=== PATIENT | male | born 1965 | race Caucasian/White ===

== ENCOUNTER 2018-08-06 03:51 | Observation (INO) ==
--- NOTE | 2018-08-06 04:26 | PROVIDER DOCUMENTATION ---
HPI-Psychological Disorder - General Chief Complaint: Overdose Stated Complaint: POSS. OD/PSYCH Time Seen by Provider: 08/06/18 04:02 Source: patient Allergies/Adverse Reactions: Patient Allergies Allergy/AdvReac Type Severity Reaction Status Date / Time codeine Allergy Unknown Verified 08/06/18 03:59 naproxen Allergy FLUSHING Verified 08/06/18 03:59 Home Medications: Home Medication List Medication Instructions Recorded Confirmed Last Taken Type Escitalopram Oxalate [Lexapro] 20 mg PO DAILY 10/06/16 04/30/18 01/07/17 09:00 History Gabapentin [Neurontin] 400 mg PO TID 01/06/17 04/30/18 01/07/17 14:00 History Tizanidine [Zanaflex] 4 mg PO Q8HR 01/06/17 04/30/18 01/07/17 14:00 History Tramadol [Ultram] 100 mg PO 4XDAY PRN 01/06/17 04/30/18 01/07/17 14:00 History Lorazepam [Ativan] 1 mg PO BID 01/07/17 04/30/18 01/06/17 21:00 History Aspirin 81 mg PO DAILY 01/20/18 04/30/18 Unknown History Montelukast Sodium [Singulair] 10 mg PO DAILY 01/20/18 04/30/18 Unknown History Omeprazole [Prilosec] 40 mg PO DAILY 01/20/18 04/30/18 Unknown History Trazodone [Desyrel] 200 mg PO QHS 01/20/18 04/30/18 01/19/18 21:00 History Budesonide/Formoterol Inhaler 2 puff INH RTBID inhaler 01/22/18 04/30/18 Unknown Rx [Symbicort 80/4.5 Microgm Inhaler] Ketorolac [Toradol] 10 mg PO Q6H PRN PRN #20 tab 04/18/18 04/30/18 Unknown Rx Orphenadrine [Norflex] 100 mg PO BID PRN #20 tab 04/18/18 04/30/18 Unknown Rx Ketorolac [Toradol] 10 mg PO Q6H PRN PRN #20 tab 05/30/18 Unknown Rx - History of Present Illness-Psych Nature of Presenting Problem: Patient is a 52 year old white male with history of chronic pain and severe depression who presents with GCS of 15 by private auto reporting overdose of 800mg gabapentin X 10-15 at 9pm tonight. Review of Systems - Adult - REVIEW OF SYSTEMS - ADULT Constitutional: denies: chills, fever Eyes: denies: blurred vision, double vision Ears, Nose, Mouth & Throat: denies: throat pain Cardiovascular: denies: chest pain Respiratory: denies: shortness of breath Gastrointestinal: denies: abdominal pain, diarrhea, nausea, vomiting Genitourinary: reports: no symptoms reported Musculoskeletal: reports: no symptoms reported Integumentary: denies: rash Neurological: reports: see HPI. denies: numbness, paresthesia, seizure Psychiatric: reports: depression, suicidal thoughts Endocrine: reports: no symptoms reported Hematologic/Lymphatic: reports: no symptoms reported Allergic/Immunologic: reports: no symptoms reported All Other Systems: Reviewed and Negative Past History - Adult - PAST MEDICAL HISTORY-ADULT Review of Records: reports: Old Records Reviewed, Nursing Assessment Review, Medications Reviewed, Social history reviewed & non-contributory. Major Childhood Illnesses: reports: denies history Cardiovascular: reports: HTN, hyperlipidemia Respiratory: reports: denies history Gastrointestinal: reports: denies history Obstetrical/Gynecological: reports: denies history Genitourinary: reports: denies history Musculoskeletal: reports: chronic pain (back), intervertebral disc disease Neurological: reports: denies history Endocrine/Immune: reports: denies history Other Conditions: reports: denies history - PRIOR SURGERIES/PROCEDURES Surgical/Procedure History: reports: none - PRIOR HOSPITALIZATIONS Prior Hospitalizations: reports: none - IMMUNIZATION STATUS Childhood Immunizations: See Nurse Assessment Flu Vaccine: See Nurse Assessment - FAMILY HISTORY Family History: reviewed, not pertinent - SOCIAL HISTORY Smoking: greater than 1 pack/day Substance Use: denies Alcohol Use Frequency: occasionally Living Situation: family Physical Exam-Psych Focus - Physical Exam-Psych Initial Vital Signs Reviewed: Yes Appearance: disheveled, other (anxious) Neurological: alert Behavior/Eye Contact/Speech: other (depressed) HENMT: normocephalic/atraumatic, moist mucous membranes Neck: non-tender, full range of motion, supple Respiratory: lungs clear, normal breath sounds, no pleuratic chest pain, no respiratory distress Cardiovascular: normal peripheral pulses, regular rate, rhythm Abdominal Exam: normal bowel sounds, non tender, soft, no organomegaly Lymphatic: no adenopathy Back Exam: normal inspection, no CVA tenderness Extremity: normal range of motion, non-tender Integumentary: normal color, normal turgor Progress - PLAN OF CARE/RESULTS Progress/Plan/Lab Results: Vital Signs - 8 hr 08/06/18 03:55 08/06/18 05:41 Temperature 97.6 F 97.8 F Pulse Rate 87 81 Respiratory Rate 18 16 Blood Pressure 205/126 150/80 O2 Sat by Pulse Oximetry 97 93 L Laboratory Results - last 24 hr 08/06/18 08/06/18 08/06/18 04:15 04:15 04:22 WBC 10.07 RBC 4.81 Hgb 14.9 Hct 43.2 MCV 89.8 MCH 31.0 MCHC 34.5 RDW Std Deviation 13.8 Plt Count 278 MPV 8.8 Immature Gran % (Auto) 0.8 H Neut % (Auto) 54.0 Lymph % (Auto) 31.5 [place] % (Auto) 9.7 H Eos % (Auto) 3.4 Baso % (Auto) 0.6 Immature Gran # (Auto) 0.08 H Neut # (Auto) 5.44 Lymph # (Auto) 3.17 [place] # (Auto) 0.98 H Eos # (Auto) 0.34 Baso # (Auto) 0.06 Sodium Potassium Chloride Carbon Dioxide Anion Gap BUN Creatinine Estimated GFR/1.73 m2 BUN/Creatinine Ratio Glucose Calculated Osmolality Calcium Total Bilirubin AST ALT Alkaline Phosphatase Total Protein Albumin Globulin Albumin/Globulin Ratio Salicylates Urine Opiates Screen NONE DETECTED Ur Oxycodone Screen NONE DETECTED Urine Methadone Screen NONE DETECTED U Propoxyphene Qual NONE DETECTED Acetaminophen Ur Barbituates Screen NONE DETECTED Ur Tricyclics Screen NONE DETECTED Ur Phencyclidine Scrn NONE DETECTED Ur Amphetamines Screen NONE DETECTED U Methamphetamines Scrn NONE DETECTED U Benzodiazepines Scrn PRESUMPTIVE POSITIVE A Urine Cocaine Screen NONE DETECTED U Cannabinoids Screen NONE DETECTED Plasma/Serum Ethyl Alc 08/06/18 04:55 WBC RBC Hgb Hct MCV MCH MCHC RDW Std Deviation Plt Count MPV Immature Gran % (Auto) Neut % (Auto) Lymph % (Auto) [place] % (Auto) Eos % (Auto) Baso % (Auto) Immature Gran # (Auto) Neut # (Auto) Lymph # (Auto) [place] # (Auto) Eos # (Auto) Baso # (Auto) Sodium 139 Potassium 3.5 Chloride 102 Carbon Dioxide 27 Anion Gap 10 BUN 12 Creatinine 1.0 Estimated GFR/1.73 m2 > 60 BUN/Creatinine Ratio 12 Glucose 108 H Calculated Osmolality 278 Calcium 9.3 Total Bilirubin 0.20 AST 65 H ALT 70 H Alkaline Phosphatase 90 Total Protein 7.6 Albumin 4.2 Globulin 3.0 Albumin/Globulin Ratio 1.0 Salicylates < 3.00 L Urine Opiates Screen Ur Oxycodone Screen Urine Methadone Screen U Propoxyphene Qual Acetaminophen < 1.2 L Ur Barbituates Screen Ur Tricyclics Screen Ur Phencyclidine Scrn Ur Amphetamines Screen U Methamphetamines Scrn U Benzodiazepines Scrn Urine Cocaine Screen U Cannabinoids Screen Plasma/Serum Ethyl Alc Orders Category Date Time Status Misc. NRSG Communication Order DIRECTED Care 08/06/18 04:05 Active Z-Document. for Tele Applied ORDERED Care 08/06/18 04:05 Completed ACETAMINOPHEN [TDM] Stat Lab 08/06/18 04:55 Completed ALCOHOL BLOOD Stat Lab 08/06/18 04:15 Completed CBC WITH ELECTRONIC DIFF [HEME] Stat Lab 08/06/18 04:15 Completed COMPREHENSIVE METABOLIC PANEL [CHEM] Stat Lab 08/06/18 04:55 Completed SALICYLATES [TDM] Stat Lab 08/06/18 04:55 Com[address] DRUG SCREEN [address] Stat Lab 08/06/18 04:22 Completed Telemetry [OM.EQ] Routine Oth 08/06/18 04:04 Active EKG [EKG] Stat Ther 08/06/18 04:[address] BRAVO FOR ADMISSION AT 0540 Result Diagrams: 08/06/18 04:15 08/06/18 04:55 - CONSULTS/PCP/HOSPITALIST Notification #1 *Consult/PCP/Hospitalist*: DR. BRAVO, HOSPITALIST Time Discussed: 05:40 Consult Disposition: Admit Departure - Departure Date of Disposition Decision: 08/06/18 Time of Disposition Decision: 05:45 DIAGNOSIS: Severe depression, Suicide attempt Drug overdose Qualifiers: Encounter type: initial encounter Injury intent: intentional self-harm Qualified Code(s): T50.902A - Poisoning by unspecified drugs, medicaments and biological substances, intentional self-harm, initial encounter Disposition: ADMITTED INPATIENT 09 Certified Medical Emergency: Emergent Condition: Stable Referrals and Follow-Ups: None,PCP [Primary Care Provider] - - Critical Care Note This patient required my direct & personal management of CC.: No Attestation - Physician/ SINGH Attestation Patient care was provided by Advanced Practice Provider:: No The physician spent face to face time with patient:: Yes Advanced Practice Provider documentation review:: Supervising physician onsite and consulted in the evaluation and care of this patient. The physician did have a face to face encounter with the patient.
[2018-08-06 04:33] LABS: BASO# 0.06 X1000 (0.0-0.2); BASO% 0.6 % (0.0-0.8); EOS# 0.34 X1000 (0.0-0.7); EOS% 3.4 % (0.0-10.0); HEMATOCRIT 43.2 % (42.0-52.0); HEMOGLOBIN 14.9 g/dL (14.0-18.0); IMM GRAN# 0.08 X1000 (0.0-0.04); IMM GRAN% 0.8 % (0.0-0.5); LYMPH# 3.17 X1000 (1.2-3.4); LYMPH% 31.5 % (20.5-51.1); MCHC 34.5 g/dL (33-37); MCV 89.8 FL (81-99); MONO# 0.98 X1000 (0.11-0.59); MONO% 9.7 % (1.7-9.3); MPV 8.8 FL (7.4-10.4); NEUT# 5.44 X1000 (1.4-6.5); PLT 278 X1000 (130-400); RBC 4.81 XMIL (4.7-6.1); RDW 13.8 % (11.5-14.5); WBC 10.07 X1000 (4.8-10.8)
[2018-08-06 05:00] LABS: UR AMPHETAMINES QUAL NONE DETECTED (NONE DETECT); UR BARBITUATES QUAL NONE DETECTED (NONE DETECT); UR BENZODIAZEPIN QUAL PRESUMPTIVE POSITIVE (NONE DETECT); UR CANNABINOIDS QUAL NONE DETECTED (NONE DETECT); UR COCAINE QUAL NONE DETECTED (NONE DETECT); UR METHADONE QUAL NONE DETECTED (NONE DETECT); UR METHAMPHETAMINE QUAL NONE DETECTED (NONE DETECT); UR OPIATES QUAL NONE DETECTED (NONE DETECT); UR OXYCODONE QUAL NONE DETECTED (NONE DETECT); UR PCP QUAL NONE DETECTED (NONE DETECT); UR PROPOXYPHENE QUAL NONE DETECTED (NONE DETECT); UR TCA QUAL NONE DETECTED (NONE DETECT)
[2018-08-06 05:17] LABS: ACETAMINOPHEN < 1.2 ug/mL (10-30); AGAP 10; ALBUMIN 4.2 g/dL (3.5-5.0); ALKALINE PHOSPHATASE 90 U/L (32-122); BUN 12 mg/dL (8-22); CALCIUM 9.3 mg/dL (8.8-10.2); CHLORIDE 102 mmol/L (98-107); COSMO 278; ESTIMATED GFR > 60; GLUCOSE 108 mg/dL (70-104); GOT 65 U/L (10-34); GPT 70 U/L (10-44); POTASSIUM 3.5 mmol/L (3.5-5.1); SALICYLATES < 3.00 mg/dL (3-10); SODIUM 139 mmol/L (136-145); TCO2 27 mmol/L (25-35); TOTAL PROTEIN 7.6 g/dL (6.3-8.3)
--- NOTE | 2018-08-06 05:58 | EKG Report ---
Test Performed on : 08/06/2018 04:11:52 AM Test Reason : pain Blood Pressure : / mmHG Vent. Rate : 081 BPM Atrial Rate : 081 BPM P-R Int : 158 ms QRS Dur : 086 ms QT Int : 364 ms P-R-T Axes : 051 069 060 degrees QTc Int : 422 ms Normal sinus rhythm. Normal ECG When compared with ECG of 20-JAN-2018 15:54, No significant change was found Unconfirmed Result
[2018-08-06 08:43] LABS: ACETAMINOPHEN < 1.2 ug/mL (10-30); SALICYLATES < 3.00 mg/dL (3-10)
[2018-08-06] MEDS ORDERED: NS 1,000 ML IV PRN (09:25)
[2018-08-06] MEDS ORDERED: ZOFRAN IV PRN (09:28)
[2018-08-06] MEDS ORDERED: TYLENOL PO PRN (09:28)
[2018-08-06] MEDS ORDERED: LEXAPRO PO SCH (09:30)
[2018-08-06] MEDS ORDERED: SINGULAIR PO SCH (09:30)
[2018-08-06] MEDS ORDERED: LOVENOX SUBQ SCH (09:30)
[2018-08-06] MEDS ORDERED: ASPIRIN PO SCH (09:30)
[2018-08-06] MEDS: SYMBICORT 80/4.5 MICROGM INHALER INH SCH ×2 (09:50→21:02)
[2018-08-06] MEDS: ATIVAN PO SCH ×2 (10:01→20:20)
[2018-08-06] MEDS ORDERED: PRINIVIL PO SCH (13:15)
[2018-08-06] MEDS: TORADOL PO PRN ×2 (13:39→20:20)
[2018-08-06 13:58] LABS: TSH 3.64 uIUmL (0.27-4.20)
--- NOTE | 2018-08-06 14:53 | HISTORY AND PHYSICAL ---
PRIMARY CARE PROVIDER: Nan MONTE. CHIEF COMPLAINT: Severe depression, wanting to . HISTORY OF PRESENT ILLNESS: 1. Mr. Nayan Khan is a 52-year-old male with a medical history of vasovagal syncope, hypertension, chronic cough, hypoglycemia, cervical spinal stenosis with bone spurs and bulging disk in the lumbar region. 2. Seasonal allergic rhinitis with possible asthma, also leading to the chronic cough. 3. Prostatism, is very weak urine stream he says. 4. Surgical bone spurs in the lumbar region, also seasonal allergic rhinitis with asthma, along with a chronic cough and the prostatism where he has a weak urinary stream. Also he has a very big history of depression. He states his depression and severe stress started when he was 16 years old. There was some sort of traumatic event for him, and he has had severe issues with anxiety and depression ever since. He is supposed to be on Lexapro; he stopped it around 3 months ago due to a running out and not having a follow-up physician appointment. Apparently last night around 7:30 or 8 according to him, he took a handful of Neurontin. He states that they were 800 mg Neurontins and it was at least 10 to 12 pills. He felt himself feeling weird to the point of having severe hallucinations. He woke his up, who then brought him to the hospital. He is transferred to the ICU for close observation. He still feels suicidal, but he wants to have help. He is requesting for help. He is very tearful. There was no other symptoms with the purposeful overdose. He is not lethargic. Blood pressure has been stable. There is just no obvious signs of overdose, like it just essentially messed him up with having hallucinations. We will get him a psych consult with Dada Sepulveda whether it be inpatient or outpatient hopefully when he feels better. He is medically stable from this point, or appears to be medically stable. He may need to be watched a little bit longer, but he wants to get help. PAST MEDICAL HISTORY: 1. Anxiety, depression. 2. Vasovagal syncope. 3. Hypertension. 4. Seasonal allergic rhinitis with possible asthma and a chronic cough that is primarily at night. 5. History of hypoglycemia. 6. Cervical spinal stenosis with bone spurs and lumbar bulging disk causing chronic back pain. 7. Prostatism. SURGICAL HISTORY: None. SOCIAL HISTORY: Smokes 1 pack per day and has so for at least 35 years. Denies alcohol or illicit drug use. He is and lives at home with his . There are no children. Currently unemployed due to the chronic back pain. FAMILY HISTORY: Mother's side of the family has diabetes and coronary artery disease. Father with no known medical conditions and brother had throat cancer. ALLERGIES: Naproxen and codeine causes him to flush. HOME MEDICATIONS: He has not been taking any home medications for 3 months. He states he has been out of all of them, although he still had his Neurontin at home. 1. Trazodone 200 mg p.o. nightly. 2. Zanaflex 4 mg p.o. every 8 hours. 3. Aspirin 81 mg p.o. daily. 4. Ativan 1 mg p.o. twice daily. 5. Lexapro 20 mg p.o. daily. 6. Neurontin 400 mg p.o. t.i.d. 7. Prilosec 40 mg p.o. daily. 8. Singulair 10 mg p.o. daily. 9. Ultram 100 mg p.o.; it does not specify the frequency. 10. Norflex 100 mg p.o. twice daily p.r.n. for muscle spasms. 11. Budesonide/formoterol 2 puffs inhaled twice daily. 12. Toradol 10 mg p.o. every 6 hours p.r.n. REVIEW OF SYSTEMS: Fourteen point review of systems are complete and all are negative, except for those mentioned above in HPI. PHYSICAL EXAMINATION: VITAL SIGNS: Temperature 97.7 degrees, heart rate 74, respiratory rate 16, blood pressure 163/102, O2 saturation 98% on room air. GENERAL: Mr. Nayan Khan is a 52-year-old, healthy-appearing male, who is in no acute distress, but he is very tearful and emotional. HEENT: Atraumatic, normocephalic. Pupils equal, round, reactive to light. Extraocular movements intact. Mucous membranes are dry. NECK: Trachea midline. CARDIOVASCULAR: S1, S2. Regular rate and rhythm. No rubs, gallops, murmurs. No lower extremity edema. There are +2 dorsalis and radial pulses. Negative JVD or carotid bruits. PULMONARY: Clear to auscultation. Bilateral breath sounds. No accessory muscle use or work of breathing noted. GI: Soft, nontender, nondistended. Positive bowel sounds x4. EXTREMITIES: Moves all extremities equally. Full range of motion. NEUROLOGIC: A and O x3. Follows commands. Sensory is intact. SKIN: Warm, dry, intact. LABORATORY DATA: White blood cells 10,000, hemoglobin 14, hematocrit 43, platelet count 278. Sodium 139, potassium 3.5. BUN 12, creatinine is 1.0, glucose 108, calcium 9.3, bilirubin 0.20. AST 65, ALT 70, albumin 4.2. Salicylate less than 3. Acetaminophen less than 1.2. Benzodiazepines positive. Alcohol negative. Had a hepatitis panel back in January due to the elevated AST, ALT, and hepatitis B, C and A were all nonreactive. IMAGING: No imaging performed yet. EKG showed normal sinus rhythm. Rate was 81, QTc was 422. ASSESSMENT/PLAN: 1. Suicidal attempt with overdose using Neurontin. Caused him to have some hallucinations. There was no central nervous system depression. He is still extremely depressed and fears what he is capable of doing. 2. Severe clinical depression. Apparently something happened at the age of 16, and he has had issues ever since. Supposed to be on Lexapro, ran out 3 months ago, and ends up with a suicidal attempt this admission. We will resume Lexapro. Also going to get [facility] as he is requesting for help. 3. History of vasovagal syncope. States now he does not pass out, but he does still have a dizziness standing on occasion. 4. Hypertension, stable. 5. Seasonal allergic rhinitis with possible asthma and chronic cough. This still has not gone away. It is more of a nocturnal cough. Will continue his Singulair, his budesonide/formoterol inhaler. 6. Prostatism. No medications for that. 7. History of hypoglycemia; he is 108 on this admit. I do not think he has any issues with hypoglycemia at home. 8. Deep venous thrombosis prophylaxis. Lovenox. 9. Tobacco abuse. Cessation discussed. Dictated by LAVELL Ontiveros for Reyes Lockwood MD cc: LAVELL Ontiveros MD
--- NOTE | 2018-08-06 18:22 | HISTORY AND PHYSICAL ---
ADDENDUM: The patient has depression. Apparently, he took a handful of Neurontin 800 mg, 10 to 15 tablets. He has known depression for which he is not really getting any treatment. In any case, patient actively suicidal, has a plan, but he does want treatment. He has never been committed before, but he has had an episode of suicidal ideation previously. The patient is felt to be medically stable. He has a mild elevation in his liver enzymes, but I am not sure if that may not just be related to fatty liver. Plan is to evaluate today by Psychiatry. I think he is medically stable for transfer at their discretion. I will reinitiate lisinopril. He has been taken off of this before because of passing out, but we will continue to follow closely. cc: Reyes Lockwood MD
[2018-08-06] MEDS ORDERED: DESYREL PO SCH (21:00)
[2018-08-06 22:25] LABS: BASO# 0.12 X1000 (0.0-0.2); BASO% 1.4 % (0.0-0.8); EOS# 0.23 X1000 (0.0-0.7); EOS% 2.7 % (0.0-10.0); HEMATOCRIT 44.8 % (42.0-52.0); HEMOGLOBIN 15.5 g/dL (14.0-18.0); IMM GRAN# 0.04 X1000 (0.0-0.04); IMM GRAN% 0.5 % (0.0-0.5); LYMPH# 2.24 X1000 (1.2-3.4); LYMPH% 26.6 % (20.5-51.1); MCH 31.4 PG (27-31); MCHC 34.6 g/dL (33-37); MCV 90.7 FL (81-99); MONO# 1.13 X1000 (0.11-0.59); MONO% 13.4 % (1.7-9.3); MPV 9.2 FL (7.4-10.4); NEUT# 4.65 X1000 (1.4-6.5); NEUT% 55.4 % (42.2-75.2); PLT 186 X1000 (130-400); RBC 4.94 XMIL (4.7-6.1); RDW 13.4 % (11.5-14.5); WBC 8.41 X1000 (4.8-10.8)
[2018-08-07 00:23] LABS: AGAP 10; ALBUMIN 3.8 g/dL (3.5-5.0); ALKALINE PHOSPHATASE 83 U/L (32-122); BUN 9 mg/dL (8-22); CALCIUM 8.5 mg/dL (8.8-10.2); CHLORIDE 106 mmol/L (98-107); COSMO 275; CREATININE 0.7 mg/dL (0.7-1.2); ESTIMATED GFR > 60; GLUCOSE 116 mg/dL (70-104); GOT 42 U/L (10-34); GPT 57 U/L (10-44); POTASSIUM 3.9 mmol/L (3.5-5.1); SODIUM 138 mmol/L (136-145); TCO2 22 mmol/L (25-35); TOTAL PROTEIN 6.8 g/dL (6.3-8.3)
[2018-08-07 01:56] VITALS: BP 193/108
--- NOTE | 2018-08-07 06:11 | EKG Report ---
Test Performed on : 08/06/2018 10:11:11 PM Test Reason : For Transfer Blood Pressure : / mmHG Vent. Rate : 074 BPM Atrial Rate : 074 BPM P-R Int : 152 ms QRS Dur : 086 ms QT Int : 374 ms P-R-T Axes : 035 052 057 degrees QTc Int : 415 ms Normal sinus rhythm. Normal ECG No previous ECGs available Unconfirmed Result
[2018-08-07] MEDS ORDERED: PRILOSEC PO SCH (07:00)
[2018-08-09 11:55] LABS: HEPATITIS PROFILE ACUTE SEE COMMENTS
== END 2018-08-07 04:03 ==
LOC: P.ICU 03:51 → P.ED 03:51
PROVIDERS: ATTEND Internal Medicine
CPT/HCPCS: 80053; 80074; 80104; 80196; 80301; 80305; 80307; 80320; 80324; 80329; 82003; 82055; 82607; 82746; 83735; 84443; 85025; 85651; 86592; 93005; 94640; A9270; G0431; G0434; G0477; G0480; G6038; G6039; G6040; J1650; J7030

== ENCOUNTER 2019-01-17 19:01 | Inpatient (IN) ==
[2019-01-17] MEDS ORDERED: NARCAN IV ONE (19:28)
[2019-01-17] MEDS ORDERED: NARCAN ONE ×2 (19:34)
[2019-01-17 20:05] LABS: BASO# 0.04 X1000 (0.0-0.2); BASO% 0.3 % (0.0-0.8); EOS# 0.29 X1000 (0.0-0.7); EOS% 2.2 % (0.0-10.0); HEMATOCRIT 43.4 % (42.0-52.0); HEMOGLOBIN 14.5 g/dL (14.0-18.0); IMM GRAN% 0.8 % (0.0-0.5); LYMPH# 2.91 X1000 (1.2-3.4); LYMPH% 22.1 % (20.5-51.1); MCH 29.2 PG (27-31); MCHC 33.4 g/dL (33-37); MCV 87.5 FL (81-99); MONO# 1.15 X1000 (0.11-0.59); MONO% 8.7 % (1.7-9.3); MPV 8.9 FL (7.4-10.4); NEUT% 65.9 % (42.2-75.2); PLT 343 X1000 (130-400); RBC 4.96 XMIL (4.7-6.1); RDW 13.4 % (11.5-14.5); WBC 13.19 X1000 (4.8-10.8)
[2019-01-17 20:16] LABS: ACETAMINOPHEN < 1.2 ug/mL (10-30); AGAP 14; ALB/GLOB RATIO 1.4; ALBUMIN 4.9 g/dL (3.5-5.0); ALKALINE PHOSPHATASE 86 U/L (32-122); BUN 13 mg/dL (8-22); CALCIUM 9.5 mg/dL (8.8-10.2); CHLORIDE 97 mmol/L (98-107); COSMO 275; CREATININE 1.7 mg/dL (0.7-1.2); ESTIMATED GFR 43; GLUCOSE 90 mg/dL (70-104); GOT 28 U/L (10-34); GPT 29 U/L (10-44); POTASSIUM 4.2 mmol/L (3.5-5.1); SALICYLATES < 3.00 mg/dL (3-10); SODIUM 138 mmol/L (136-145); TCO2 27 mmol/L (25-35); TOTAL PROTEIN 8.3 g/dL (6.3-8.3)
[2019-01-17 20:23] LABS: ALLEN TEST YES; BE 0.5 mmoll (-3.0-3.0); BLOOD TYPE ARTERIAL; HCO3-(ACT) 25.2 mmoll (20.0-26.0); METHB 0.2 % (0.0-1.5); MODALITY CANNULA; O2(CT) 19.1 mL/dL (15.0-23.0); O2HB 92.5 % (95.0-99.0); PCO2(98.6) 44 mmHg (35-45); PO2(98.6) 116 mmHg (60-100); SAMPLE BLOOD; SAO2 96.6 % (95.0-100.0); THB 14.6 g/dL (11.5-17.4); pH(98.6) 7.38 (7.35-7.45)
--- NOTE | 2019-01-17 21:53 | PROVIDER DOCUMENTATION ---
This chart was entered by Giselle Al Scribe, acting as scribe for Carlos Pena MD. HPI-Psychological Disorder - General Stated Complaint: OD Time Seen by Provider: 01/17/19 19:16 Source: patient, EMS Unable to obtain history due to:: altered Allergies/Adverse Reactions: Patient Allergies Allergy/AdvReac Type Severity Reaction Status Date / Time No Known Allergies Allergy Verified 01/17/19 19:52 Home Medications: Home Medication List Medication Instructions Recorded Confirmed Last Taken Type Fluoxetine HCl [Prozac] 20 mg PO DAILY 01/17/19 01/17/19 Unknown History Hydroxyzine [Atarax] 50 mg PO TID 01/17/19 01/17/19 Unknown History Lamotrigine [Lamictal] 100 mg PO BID 01/17/19 01/17/19 Unknown History Lisinopril 20 mg PO DAILY 01/17/19 01/17/19 Unknown History - History of Present Illness-Psych Nature of Presenting Problem: pt is a 53 yr old male presenting via EMS with reports of overdose. pt and admits he took 16 Amanda Reds at approx 1600 today,denies SI/HI but denies s uicidal ideation. pt is drowsy but easily aroused, complains of dry mouth and palpitations. EMS called by due to pt being lethargic Onset/Duration: reports: this afternoon (1600) Timing: reports: still present Psychiatric Complaints: denies: homicidal thoughts, suicidal ideation Patient arrived by:: EMS called by spouse/family - Suicidal Ideation How did the ingestion/other suicidal act come to attention?: denies Review of Systems - Adult - REVIEW OF SYSTEMS - ADULT Constitutional: reports: no symptoms reported Eyes: reports: no symptoms reported Ears, Nose, Mouth & Throat: reports: no symptoms reported Cardiovascular: reports: palpitations Respiratory: reports: no symptoms reported Gastrointestinal: reports: no symptoms reported Genitourinary: reports: no symptoms reported Musculoskeletal: reports: no symptoms reported Integumentary: reports: no symptoms reported Neurological: reports: slurred speech Endocrine: reports: no symptoms reported Hematologic/Lymphatic: reports: no symptoms reported Allergic/Immunologic: reports: no symptoms reported All Other Systems: Reviewed and Negative Past History - Adult - PAST MEDICAL HISTORY-ADULT Review of Records: reports: Nursing Assessment Review, Medications Reviewed, Social history reviewed & non-contributory. Major Childhood Illnesses: reports: denies history Cardiovascular: reports: denies history Respiratory: reports: denies history Gastrointestinal: reports: denies history Obstetrical/Gynecological: reports: denies history Genitourinary: reports: denies history Musculoskeletal: reports: denies history Neurological: reports: denies history Endocrine/Immune: reports: denies history Other Conditions: reports: denies history - IMMUNIZATION STATUS Childhood Immunizations: See Nurse Assessment Flu Vaccine: See Nurse Assessment - FAMILY HISTORY Family History: reviewed, not pertinent Physical Exam-Psych Focus - Physical Exam-Psych Initial Vital Signs Reviewed: Yes Appearance: no apparent distress, slow to respond, other (drowsy, easily aroused) Neurological: oriented x 3, flat Behavior/Eye Contact/Speech: decreased rate of speech Thoughts/Hallucinations: no apparent hallucination HENMT: negative: moist mucous membranes (dry oral mucosa) Neck: non-tender, full range of motion, supple, normal inspection Respiratory: chest non-tender, lungs clear, normal breath sounds Cardiovascular: tachycardia Abdominal Exam: normal bowel sounds, non tender, soft Lymphatic: no adenopathy Back Exam: normal inspection, no CVA tenderness, no vertebral tenderness Extremity: normal range of motion, non-tender, normal inspection Integumentary: normal color, normal turgor, warm/dry Progress - PLAN OF CARE/RESULTS Progress/Plan/Lab Results: Vital Signs - 8 hr 01/17/19 19:15 01/17/19 19:17 01/17/19 19:19 Temperature 98.7 F Pulse Rate 111 H 109 H Respiratory Rate 14 19 Blood Pressure 117/81 126/77 O2 Sat by Pulse Oximetry 94 L 94 L 01/17/19 19:20 01/17/19 19:30 01/17/19 20:00 Temperature Pulse Rate 109 H 109 H 104 H Respiratory Rate 15 21 24 Blood Pressure 117/81 O2 Sat by Pulse Oximetry 89 L 92 L 100 01/17/19 20:30 01/17/19 21:00 01/17/19 21:30 Temperature Pulse Rate 104 H 107 H 105 H Respiratory Rate 19 16 21 Blood Pressure O2 Sat by Pulse Oximetry 95 94 L 93 L 01/17/19 21:33 01/17/19 21:47 01/17/19 22:00 Temperature Pulse Rate 103 H 104 H 102 H Respiratory Rate 15 20 17 Blood Pressure 107/80 138/75 O2 Sat by Pulse Oximetry 92 L 92 L 97 01/17/19 22:03 Temperature 100.4 F H Pulse Rate 110 H Respiratory Rate 18 Blood Pressure 132/82 O2 Sat by Pulse Oximetry 96 Laboratory Results - last 24 hr 01/17/19 01/17/19 01/17/19 19:17 19:35 19:35 WBC 13.19 H RBC 4.96 Hgb 14.5 Hct 43.4 MCV 87.5 MCH 29.2 MCHC 33.4 RDW Std Deviation 13.4 Plt Count 343 MPV 8.9 Immature Gran % (Auto) 0.8 H Neut % (Auto) 65.9 Lymph % (Auto) 22.1 [place] % (Auto) 8.7 Eos % (Auto) 2.2 Baso % (Auto) 0.3 Immature Gran # (Auto) 0.10 H Neut # (Auto) 8.70 H Lymph # (Auto) 2.91 [place] # (Auto) 1.15 H Eos # (Auto) 0.29 Baso # (Auto) 0.04 Specimen Type ARTERIAL Sample Site R RADIAL pH 7.38 pCO2 44 pO2 116 H HCO3 25.2 Base Excess 0.5 Oxyhemoglobin 92.5 L ABG O2 Sat (Calculated) 19.1 ABG O2 Saturation 96.6 ABG Carboxyhemoglobin 4.00 H ABG Methemoglobin 0.2 Demond Test YES A-a O2 Difference -21.0 Total Hemoglobin 14.6 Lactate 1.00 Liter Flow 0.0 Blood Gas Modality CANNULA FiO2 % 21.0 Sodium Potassium Chloride Carbon Dioxide Anion Gap BUN Creatinine Estimated GFR/1.73 m2 BUN/Creatinine Ratio Glucose Calculated Osmolality Calcium Total Bilirubin AST ALT Alkaline Phosphatase Total Protein Albumin Globulin Albumin/Globulin Ratio TSH Salicylates Acetaminophen Plasma/Serum Ethyl Alc 01/17/19 01/17/19 19:35 19:35 WBC RBC Hgb Hct MCV MCH MCHC RDW Std Deviation Plt Count MPV Immature Gran % (Auto) Neut % (Auto) Lymph % (Auto) [place] % (Auto) Eos % (Auto) Baso % (Auto) Immature Gran # (Auto) Neut # (Auto) Lymph # (Auto) [place] # (Auto) Eos # (Auto) Baso # (Auto) Specimen Type Sample Site pH pCO2 pO2 HCO3 Base Excess Oxyhemoglobin ABG O2 Sat (Calculated) ABG O2 Saturation ABG Carboxyhemoglobin ABG Methemoglobin Demond Test A-a O2 Difference Total Hemoglobin Lactate Liter Flow Blood Gas Modality FiO2 % Sodium 138 Potassium 4.2 Chloride 97 L Carbon Dioxide 27 Anion Gap 14 BUN 13 Creatinine 1.7 H Estimated GFR/1.73 m2 43 BUN/Creatinine Ratio 8 Glucose 90 Calculated Osmolality 275 Calcium 9.5 Total Bilirubin 0.30 AST 28 ALT 29 Alkaline Phosphatase 86 Total Protein 8.3 Albumin 4.9 Globulin 3.4 Albumin/Globulin Ratio 1.4 TSH 13.26 H Salicylates < 3.00 L Acetaminophen < 1.2 L Plasma/Serum Ethyl Alc Orders Category Date Time Status Admit - [facility] Routine AdmDCTranf 01/18/19 01:30 Active Activity - Up with Assistance ORDERED Care 01/18/19 01:30 Active Intake and Output-Strict ORDERED Care 01/18/19 01:30 Active Misc. NRSG Communication Order DIRECTED Care 01/17/19 19:20 Active Neurological Check ORDERED Care 01/18/19 01:30 Active Saline Loc NOW Care 01/17/19 19:20 Active Vital Signs Order Q 8-HR ASSESS Care 01/18/19 01:30 Active Z-Document. for Tele Applied ORDERED Care 01/17/19 19:17 Active NPO Diet 01/18/19 01:30 Active ABG [RESP] Routine Lab 01/17/19 19:17 Completed ACETAMINOPHEN [TDM] Stat Lab 01/17/19 19:35 Completed ALCOHOL BLOOD Stat Lab 01/17/19 19:35 Completed BASIC METABOLIC PANEL [CHEM] Routine Lab 01/18/19 06:00 Uncollected CBC WITH DIFF [HEME] Routine Lab 01/18/19 06:00 Uncollected CBC WITH ELECTRONIC DIFF [HEME] Stat Lab 01/17/19 19:35 Completed COMPREHENSIVE METABOLIC PANEL [CHEM] Stat Lab 01/17/19 19:35 Completed SALICYLATES [TDM] Stat Lab 01/17/19 19:35 Completed TSH Stat Lab 01/17/19 19:35 Completed URINALYSIS W/POSS RFLX CULT [URINALYSIS] Stat Lab 01/17/19 19:16 Uncollected URINE DRUG SCREEN Stat Lab 01/17/19 19:16 Uncollected 0.9% Sodium Chloride Inj [Ns] 1,000 ml Med 01/18/19 01:30 Active IV 125 mls/hr Naloxone [Narcan] Med 01/17/19 19:34 Discontinued 0.4 mg .ROUTE .STK-MED ONE Naloxone [Narcan] Med 01/17/19 19:28 Discontinued 1 mg IV NOW ONE Naloxone [Narcan] Med 01/17/19 19:34 Discontinued 2 mg .ROUTE .STK-MED ONE Ondansetron [Zofran] Med 01/18/19 01:30 Active 4 mg IV Q4H PRN PRN Pulse Oximetry Stat Oth 01/17/19 19:18 Completed Telemetry [OM.EQ] Routine Oth 01/17/19 19:17 Active EKG [EKG] Stat Ther 01/17/19 19:21 Draft Transfer/Admit Order [TRANSFER] Routine Transfer 01/17/19 23:39 Completed Result Diagrams: 01/17/19 19:35 01/17/19 19:35 - EKG 1 Time of EKG reading by physician:: 21:00 EKG Read and Signed by:: Carlos Pena EKG Interpretation (*Must complete 3 of following elements*): Normal Rate: 108 Rhythm: sinus tach [place]: normal QRS: normal [place] Interval: normal ST Wave: normal Departure - Departure Date of Disposition Decision: 01/17/19 Time of Disposition Decision: 19:16 DIAGNOSIS: Accidental overdose Qualifiers: Encounter type: initial encounter Qualified Code(s): T50.901A - Poisoning by unspecified drugs, medicaments and biological substances, accidental (unintentional), initial encounter Disposition: ADMITTED INPATIENT 09 Certified Medical Emergency: Emergent Condition: Stable - Critical Care Note This patient required my direct & personal management of CC.: No Attestation - Physician/ SINGH Attestation Patient care was provided by Advanced Practice Provider:: No The physician spent face to face time with patient:: Yes Advanced Practice Provider documentation review:: Supervising physician onsite and consulted in the evaluation and care of this patient. The physician did have a face to face encounter with the patient. This chart was documented by the indicated scribe, (Giselle Al Scribe) and accurately reflects the services I performed and decisions made by me, Carlos Kyle MD, as attested by the provider's signature.
--- NOTE | 2019-01-17 22:00 | EKG Report ---
Test Performed on : 01/17/2019 8:59:18 PM Test Reason : pain Blood Pressure : / mmHG Vent. Rate : 108 BPM Atrial Rate : 108 BPM P-R Int : 144 ms QRS Dur : 084 ms QT Int : 338 ms P-R-T Axes : 037 062 032 degrees QTc Int : 452 ms Sinus tachycardia. Otherwise normal ECG No previous ECGs available Unconfirmed Result
[2019-01-18] MEDS ORDERED: ZOFRAN IV PRN (01:30)
[2019-01-18] MEDS: NS 1,000 ML IV SCH ×2 (01:52→09:11)
[2019-01-18] MEDS ORDERED: XYLOCAINE 2% JELLY UROJECT TOP ONE (04:03)
[2019-01-18] MEDS ORDERED: XYLOCAINE 2% JELLY UROJECT ONE (04:10)
[2019-01-18 04:26] LABS: URINE SOURCE CATH
[2019-01-18 04:34] LABS: BILIRUBIN URINE NEGATIVE (NEGATIVE); BLOOD URINE LARGE (NEGATIVE); COLOR YELLOW; GLUCOSE URINE NEGATIVE (NEGATIVE); KETONE URINE NEGATIVE (NEGATIVE); LEUKOCYTES URINE NEGATIVE (NEGATIVE); NITRITE URINE NEGATIVE (NEGATIVE); PROTEIN URINE 30 mg/dL (NEGATIVE); SP GRAVITY URINE 1.021; TURBIDITY URINE CLEAR (CLEAR); UROBILINOGEN URINE NORMAL (NORMAL)
[2019-01-18 04:43] LABS: UR EPITHELIAL CELLS <10 /HPF (<10); URINE BACTERIA NEGATIVE /HPF; URINE RBC TNTC /HPF (<10); URINE WBC <10 /HPF (<10)
[2019-01-18 04:49] LABS: UR AMPHETAMINES QUAL NONE DETECTED (NONE DETECT); UR BARBITUATES QUAL NONE DETECTED (NONE DETECT); UR BENZODIAZEPIN QUAL NONE DETECTED (NONE DETECT); UR CANNABINOIDS QUAL NONE DETECTED (NONE DETECT); UR COCAINE QUAL NONE DETECTED (NONE DETECT); UR METHADONE QUAL NONE DETECTED (NONE DETECT); UR OPIATES QUAL NONE DETECTED (NONE DETECT); UR OXYCODONE QUAL NONE DETECTED (NONE DETECT); UR PCP QUAL NONE DETECTED (NONE DETECT)
[2019-01-18 06:37] LABS: BASO# 0.03 X1000 (0.0-0.2); BASO% 0.3 % (0.0-0.8); EOS% 2.2 % (0.0-10.0); HEMATOCRIT 40.9 % (42.0-52.0); HEMOGLOBIN 13.4 g/dL (14.0-18.0); IMM GRAN# 0.04 X1000 (0.0-0.04); IMM GRAN% 0.4 % (0.0-0.5); LYMPH# 1.79 X1000 (1.2-3.4); MCH 29.3 PG (27-31); MCHC 32.8 g/dL (33-37); MCV 89.3 FL (81-99); MPV 8.6 FL (7.4-10.4); NEUT% 67.1 % (42.2-75.2); PLT 246 X1000 (130-400); RBC 4.58 XMIL (4.7-6.1); RDW 13.4 % (11.5-14.5); WBC 8.96 X1000 (4.8-10.8)
[2019-01-18 07:02] LABS: AGAP 11; BUN 13 mg/dL (8-22); CALCIUM 8.9 mg/dL (8.8-10.2); CHLORIDE 97 mmol/L (98-107); COSMO 271; CREATININE 1.2 mg/dL (0.7-1.2); ESTIMATED GFR > 60; GLUCOSE 104 mg/dL (70-104); POTASSIUM 4.4 mmol/L (3.5-5.1); SODIUM 135 mmol/L (136-145); TCO2 27 mmol/L (25-35)
--- NOTE | 2019-01-18 07:56 | HISTORY AND PHYSICAL ---
PRIMARY CARE PHYSICIAN: None. CHIEF COMPLAINT: Drug overdose. HISTORY OF PRESENTING ILLNESS: A 53-year-old male with a history of bipolar disorder and hypertension who apparently took some hmdz-rcx-gugfvgk supplements called TianSevenpop Red. Apparently, he took about 16 pills at one time. He became lethargic and his called EMS. Patient was brought to the emergency department. He was still arousable and talking. However he was somewhat sleepy. His case was discussed with poison control who recommended admission for observation. The patient and his had both denied he had any suicidal ideations or thoughts. At the time of my examination, patient denied any headache, fever, chills, chest pain, shortness of breath or any weight changes also. PAST MEDICAL HISTORY: Bipolar disorder. Hypertension. PAST SURGICAL HISTORY: None. ALLERGIES: No known drug allergies. CURRENT MEDICATIONS: Include Prozac, Lamictal, lisinopril, and Atarax. SOCIAL HISTORY: A 40 pack year history of smoking. Denies any history of alcohol or illicit drug use. FAMILY HISTORY: No history of coronary disease. REVIEW OF SYSTEMS: Fourteen point review of system is as in HPI. Other systems negative. PHYSICAL EXAMINATION: GENERAL: Cooperative and friendly male. He is without any respiratory distress, but he is somewhat drowsy. VITAL SIGNS: Temperature 98.7 degrees, pulse 111, respirations 14, and blood pressure 117/81. HEENT: Atraumatic, normocephalic. PERRLA. NECK: No masses. CHEST: Clear to auscultation. CARDIOVASCULAR: Regular rate and rhythm. ABDOMEN: Soft. Positive bowel sounds. EXTREMITIES: No edema. NEUROLOGIC: He is awake, alert, and oriented x2. : No bladder distention. SKIN: Warm. LABORATORIES AND STUDIES: WBC 13.19, hemoglobin 14.5, hematocrit 43.4, and platelets 343,000. Blood gas is pH of 7.38. Sodium 138, potassium 4.2, chloride 97, CO2 27, BUN is 13, creatinine is 1.7, and glucose 90. Tox screen shows acetaminophen level less than 1.2, and salicylate level less than 3. ASSESSMENT: A 53-year-old male with a history of bipolar disorder and hypertension who was brought to the emergency department due to patient becoming somewhat lethargic. He apparently had taken some supplements called Tianaa Red. As per his , he became somewhat drowsy and EMS was called, and brought patient to the emergency room. In the ED, he was evaluated. His case was discussed with poison control who recommended the patient be admitted for observation for further management. 1. Suspected drug overdose with Tianaa Red. 2. Bipolar disorder. 3. Hypertension. PLAN: 1. We will admit patient to PVC. 2. Continue with supportive care. 3. We will continue with neuro checks. 4. Continue with gentle hydration. 5. We will hold home medications for now. 6. Place patient on DVT prophylaxis with SCD's. 7. We will continue to follow and reassess. Make further recommendation based on patient's clinical course. cc: Louie Malagon MD
--- NOTE | 2019-01-18 14:28 | Diag Imaging Result Doc PS360 ---
EXAM: CT HEAD W/O CONTRAST HISTORY: Syncope TECHNIQUE: CT head without contrast COMPARISON: None. FINDINGS: No parenchymal hemorrhage. No epidural or subdural hematoma. No subarachnoid hemorrhage. No mass identified on this noncontrasted exam. No hydrocephalus. No sinus opacification. IMPRESSION: No hemorrhage. Negative brain CT without contrast. This exam was performed using automated exposure control, adjustment of mA or kV according to patient size, and/or use of iterative reconstruction technique. Electronically signed by Rojelio Gunter 01/18/2019 2:26 PM
--- NOTE | 2019-01-18 20:46 | PROGRESS NOTE ---
DATE: 01/18/2019 INTERVAL HISTORY: No acute events overnight. SUBJECTIVE: Mr. Khan is awake and alert. He states that he was trying to come out of bathroom and suddenly passed out and he could not remember what happened afterwards. I called the patient's and gathered historical data. Apparently, patient has been taking uski-iwu-dglrzib dietary supplements named Tianaa Red and he used to take multiple tablets during daytime, according to report given to me by his . He used to take these medications because he felt that he used to get a lot of energy out of those tablets. He had taken about 8 to 10 or probably 16 tablets of his Tianaa Red prior to presentation. One hour after that when he was standing close to his bathroom, he felt he passed out and the family responded there and when they saw him, he was still awake, but he was confused. He probably never lost his consciousness, so they called EMS and he was brought in here. Currently, patient denies chest pain, shortness of breath, nausea, vomiting, abdominal pain. He is hungry. VITALS: Temperature of 97.5 degrees, pulse of 73, respiratory rate 15, blood pressure 120/80, saturating 97% on room air. PHYSICAL EXAMINATION: General: Not in acute distress. HEENT: Oral cavity is moist. Lungs: Air entry bilaterally equal. No wheeze, rhonchi, crackles. Cardiovascular: S1, S2. No murmur, rub, or gallop. Abdomen: Soft, nontender. Extremity: No lower extremity edema. Genitourinary: He has urine catheter. He has IV fluids going on. Extremities/Neurologic: He is able to raise both upper and lower extremities above ground level. His reflexes are 2+ bilaterally. LABS: His leukocytosis has resolved. Normal hemoglobin, normal platelet count. His ABGs did not have hypercarbia. He did have elevated creatinine which improved after IV fluid resuscitation. No microbiological data. IMAGING: Head CT did not have any acute abnormality. EKG had sinus tachycardia. ASSESSMENT AND PLAN: 1. Acute encephalopathy and syncope due to use of multiple psychiatric medications as well as possibly suzv-dfo-iojqope dietary supplement named Tianaa Red EKG did not have any abnormality. Head CT is unremarkable. I will monitor him inside the hospital for 24 hours and keep him without those medications at the moment. 2. History of chronic back pain and neck pain. 3. Bipolar and mood disorder and insomnia. I will continue his home melatonin, lamotrigine, and fluoxetine. I will hold his home trazodone and hydroxyzine. 4. History of essential hypertension. Continue his lisinopril. Follow up BMP. DISPOSITION: I will monitor patient inside the hospital for 24 hours and if he continues to do well I will discharge him home tomorrow. He should have a followup appointment with his psychiatrist to have a discussion about medication interactions again. cc: Campos Jon MD
[2019-01-18] MEDS ORDERED: MELATONIN PO SCH (21:00)
[2019-01-18] MEDS: LAMICTAL PO SCH (21:08)
[2019-01-19 07:43] VITALS: BP 137/72
--- NOTE | 2019-01-19 07:45 | EKG Report ---
Test Performed on : 01/19/2019 07:05:35 AM Test Reason : Follow up heart rhythm Blood Pressure : / mmHG Vent. Rate : 078 BPM Atrial Rate : 078 BPM P-R Int : 156 ms QRS Dur : 096 ms QT Int : 378 ms P-R-T Axes : 053 068 051 degrees QTc Int : 430 ms Normal sinus rhythm. Normal ECG When compared with ECG of 17-JAN-2019 20:59, (Unconfirmed) No significant change was found Confirmed by Neno REY, Enrique ([id number]) on 01/19/2019 8:39:35 AM
[2019-01-19 08:27] LABS: AGAP 12; BUN 9 mg/dL (8-22); CHLORIDE 97 mmol/L (98-107); COSMO 275; CREATININE 0.9 mg/dL (0.7-1.2); ESTIMATED GFR > 60; GLUCOSE 102 mg/dL (70-104); POTASSIUM 4.1 mmol/L (3.5-5.1); SODIUM 138 mmol/L (136-145); TCO2 29 mmol/L (25-35)
[2019-01-19] MEDS ORDERED: PROZAC PO SCH (09:00)
[2019-01-19] MEDS ORDERED: PRINIVIL PO SCH (09:00)
[2019-01-19] MEDS: LAMICTAL PO SCH (09:44)
[2019-01-19] MEDS ORDERED: FLU VACCINE IM ONE (11:11)
--- NOTE | 2019-01-22 00:27 | DISCHARGE SUMMARY ---
ADMISSION DATE: 01/17/2019 DISCHARGE DATE: 01/19/2019 DISCHARGE DISPOSITION: Home. DISCHARGE CONDITION: Hemodynamically stable. He is alert and oriented x3. I had a discussion with him and his about having a discussion with the psychiatrist about decreasing the amount of sedating medication he is on. I also advised him about stopping the use of oogf-shy-iuavwqx dietary supplements. He and his understood. DISCHARGE DIAGNOSES: 1. Acute encephalopathy due to use of multiple psychiatric medications as well as accidental overdose of quob-psg-hykdlpr dietary supplement, named Tianaa Red. 2. Syncope due to use of multiple sedative medication, or suspected vasovagal syncope. OTHER DIAGNOSES: 1. Prior history of drowsiness and hypercarbic respiratory failure due to use of multiple sedating medications. 2. History of chronic back and neck pain. 3. History of bipolar mood disorder, chronic, and insomnia. 4. History of essential hypertension. DISCHARGE MEDICATIONS: Trazodone 50 mg at nighttime; lamotrigine 100 mg b.i.d.; lisinopril 20 mg daily; melatonin 10 mg daily; fluoxetine 220 mg daily. He was advised to have a discussion with the psychiatrist about decreasing and slowly tapering off nonessential medications. PHYSICAL EXAMINATION: Vital signs at the time of discharge: Temperature 98.2 degrees, pulse 75, respiratory rate 16, blood pressure 146/93, saturating 94% on room air. On physical examination not in acute distress. Oral cavity is moist. Air entry bilaterally equal. No wheeze, rhonchi or crackles. S1, S2 normal. No murmur or gallop. Abdomen is soft, nontender. No lower extremity edema. He was alert and oriented x3. LABORATORY DATA: On presentation he had WBC of 13,000 which improved to 8000 at the time of discharge, hemoglobin 13.4, platelets 246,000. ABG had pH of 7.38, pCO2 of 44 and pO2 of 116. His sodium is 136, potassium 4.1. His BUN is 9, creatinine of 0.9. His creatine kinase is 602. His TSH was 1.1. His urinalysis had suo-rofakkbj-lq-count RBCs and large blood; however, it was likely traumatic catheterization. Urine toxicology did not have any positivity. Microbiology: No data. DIAGNOSTIC DATA: Head CT during hospital admission did not have any hemorrhage. It was negative for any acute pathology. Electrocardiogram did not have any Q-T interval prolongation. It had sinus tachycardia. HOSPITAL COURSE SUMMARY: Mr. Khan is a 53-year-old man who came in after an episode of syncope. Apparently, according to the history given by the patient's , the patient liked taking twvt-ydi-ketmgpw dietary supplement called Tianaa Red since it made him feel really strong. On the day of presentation, to feel stronger he had apparently ingested 10 to 16 Tianaa Red tablets about 1-2 hours prior to his syncopal episode. When he was going to the bathroom, right at the bathroom door he collapsed and fell down, so the family went in. At that time he appeared a little confused, and so they decided to bring him to the emergency room. In the ER he was hemodynamically stable and head CT was unremarkable. It was thought that his episode was vasovagal in the setting of unintentional overdose of Tianaa Red as well as his use of multiple sedative medications including cyclobenzaprine, fluoxetine, hydroxyzine, melatonin and trazodone. His sedating medications were held and he was monitored. Serial EKGs were also performed which did not have any Q-T interval prolongation or any cardiac arrhythmia. At the time of discharge he was advised to stop taking cyclobenzaprine, hydroxyzine and melatonin, and he was advised to have a discussion with his psychiatrist about decreasing the doses of lamotrigine, fluoxetine and trazodone as tolerated. More than 30 minutes of time was spent discharging the patient. I had detailed discharge instructions given to the patient and his at bedside. Their questions and concerns were answered. cc: Campos Jon MD
== END 2019-01-19 11:27 | disposition home or self-care (01) | DRG 917 ==
LOC: EDBD → SUPCPDRO → ED 19:01 → MERGE 19:15 → SUATTDRO 01-18 00:58 → EDIPHOLD 01-18 00:58 → 3N 01-18 17:30
PROVIDERS: ATTEND Internal Medicine